=== PATIENT | female | born 1990 | race Caucasian/White ===

== ENCOUNTER 2017-12-05 08:21 | Emergency (ER) | payer BC ==
[2017-12-05] MEDS ORDERED: Albuterol/Ipratropium 3.0-0.5 MG/3 ML Neb Soln NEB ONE (08:35)
[2017-12-05] MEDS ORDERED: predniSONE 20 MG Tab PO ONE (08:37)
--- NOTE | 2017-12-05 08:39 | EDM.PDOC ---
ED HPI GENERAL MEDICAL PROBLEM - General Chief Complaint: Respiratory Problem Stated Complaint: COUGHING Time Seen by Provider: 12/05/17 08:32 - History of Present Illness INITIAL COMMENTS - FREE TEXT/NARRATIVE: HISTORY AND PHYSICAL: History of present illness: Patient's 27-year-old female is approximately 28 weeks with history of asthma presents with a concern of shortness breath and wheezing Review of systems: As per history of present illness and below otherwise all systems reviewed and negative. Past medical history: As per history of present illness and as reviewed below otherwise noncontributory. Surgical history: As per history of present illness and as reviewed below otherwise noncontributory. Social history: No reported history of drug or alcohol abuse. Family history: As per history of present illness and as reviewed below otherwise noncontributory. Physical exam: HEENT: Atraumatic, normocephalic, pupils reactive, negative for conjunctival pallor or scleral icterus, mucous membranes moist, throat clear, neck supple, nontender, trachea midline. Lungs: Scattered installing extra wheezing no rhonchi no crackles, breath sounds equal bilaterally, chest nontender. Heart: S1S2, regular, negative for clicks, rubs, or JVD. Abdomen: Soft, nondistended, nontender. Negative for masses or hepatosplenomegaly. Negative for costovertebral tenderness. Pelvis: Stable nontender. Genitourinary: Deferred. Rectal: Deferred. Extremities: Atraumatic, negative for cords or calf pain. Neurovascular unremarkable. Neuro: Awake, alert, oriented. Cranial nerves II through XII unremarkable. Cerebellum unremarkable. Motor and sensory unremarkable throughout. Exam nonfocal. Diagnostics: CBC CMP BNP UA Therapeutics: Albuterol ipratropium nebulizer prednisone 40 mg by mouth Impression: #128 week intrauterine #2 asthmatic exacerbation Definitive disposition and diagnosis as appropriate pending reevaluation and review of above. 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 ED EXAM, GENERAL - Physical Exam Exam: See Below (See dictation) Course - Vital Signs Last Recorded V/S: Last Vital Signs Temp 35.7 C 12/05/17 08:34 Pulse 87 12/05/17 09:20 Resp 20 12/05/17 09:20 BP 121/70 12/05/17 09:20 Pulse Ox 99 12/05/17 09:20 - Orders/Labs/Meds Orders: Active Orders 24 hr Category Date Time Status RT Aerosol Therapy [RC] ASDIRECTED Care 12/05/17 08:36 Active URINALYSIS W/MICROSCOPIC [UA W/MICROSCOPIC] [URIN] Stat Lab 12/05/17 09:30 Ordered Labs: Laboratory Tests 12/05/17 12/05/17 12/05/17 Range/Units 08:50 08:50 08:50 WBC 13.68 H (4.0-11.0) K/uL RBC 3.88 L (4.30-5.90) M/uL Hgb 11.1 L (12.0-16.0) g/dL Hct 32.4 L (36.0-46.0) % MCV 83.5 (80.0-98.0) fL MCH 28.6 (27.0-32.0) pg MCHC 34.3 (31.0-37.0) g/dL RDW Std Deviation 43.8 (28.0-62.0) fl RDW Coeff of Taylor 15 (11.0-15.0) % Plt Count 244 (150-400) K/uL MPV 9.90 (7.40-12.00) fL Neut % (Auto) 81.6 H (48.0-80.0) % Lymph % (Auto) 11.9 L (16.0-40.0) % [place] % (Auto) 3.9 (0.0-15.0) % Eos % (Auto) 2.5 (0.0-7.0) % Baso % (Auto) 0.1 (0.0-1.5) % Neut # (Auto) 11.2 H (1.4-5.7) K/uL Lymph # (Auto) 1.6 (0.6-2.4) K/uL [place] # (Auto) 0.5 (0.0-0.8) K/uL Eos # (Auto) 0.3 (0.0-0.7) K/uL Baso # (Auto) 0.0 (0.0-0.1) K/uL Nucleated RBC % 0.0 /100WBC Nucleated RBCs # 0 K/uL Sodium 137 (136-145) mmol/L Potassium 3.8 (3.5-5.1) mmol/L Chloride 105 (98-107) mmol/L Carbon Dioxide 24.9 (21.0-32.0) mmol/L BUN 7 (7.0-18.0) mg/dL Creatinine 0.7 (0.6-1.0) mg/dL Est Cr Clr Drug Dosing 121.78 mL/min Estimated GFR (MDRD) > 60.0 ml/min Glucose 123 H (74-106) mg/dL Calcium 8.8 (8.5-10.1) mg/dL Total Bilirubin 0.4 (0.2-1.0) mg/dL AST 7 L (15-37) IU/L ALT 12 L (14-63) IU/L Alkaline Phosphatase 79 (46-116) U/L B-Natriuretic Peptide < 15 (<100) PG/ML Total Protein 7.2 (6.4-8.2) g/dL Albumin 2.7 L (3.4-5.0) g/dL Globulin 4.5 H (2.0-3.5) g/dL Albumin/Globulin Ratio 0.6 L (1.3-2.8) Urine Color Urine Appearance Urine pH (5.0-8.0) Ur Specific [place] (1.001-1.035) Urine Protein (NEGATIVE) mg/dL Urine Glucose (UA) (NEGATIVE) mg/dL Urine Ketones (NEGATIVE) mg/dL Urine Occult Blood (NEGATIVE) Urine Nitrite (NEGATIVE) Urine Bilirubin (NEGATIVE) Urine Urobilinogen (<2.0) EU/dL Ur Leukocyte Esterase (NEGATIVE) Urine RBC (0-2/HPF) Urine WBC (0-5/HPF) Ur Epithelial Cells (NONE-FEW) Urine Bacteria (NEGATIVE) 12/05/17 Range/Units 09:30 WBC (4.0-11.0) K/uL RBC (4.30-5.90) M/uL Hgb (12.0-16.0) g/dL Hct (36.0-46.0) % MCV (80.0-98.0) fL MCH (27.0-32.0) pg MCHC (31.0-37.0) g/dL RDW Std Deviation (28.0-62.0) fl RDW Coeff of Taylor (11.0-15.0) % Plt Count (150-400) K/uL MPV (7.40-12.00) fL Neut % (Auto) (48.0-80.0) % Lymph % (Auto) (16.0-40.0) % [place] % (Auto) (0.0-15.0) % Eos % (Auto) (0.0-7.0) % Baso % (Auto) (0.0-1.5) % Neut # (Auto) (1.4-5.7) K/uL Lymph # (Auto) (0.6-2.4) K/uL R[place] # (Auto) (0.0-0.8) K/uL Eos # (Auto) (0.0-0.7) K/uL Baso # (Auto) (0.0-0.1) K/uL Nucleated RBC % /100WBC Nucleated RBCs # K/uL Sodium (136-145) mmol/L Potassium (3.5-5.1) mmol/L Chloride (98-107) mmol/L Carbon Dioxide (21.0-32.0) mmol/L BUN (7.0-18.0) mg/dL Creatinine (0.6-1.0) mg/dL Est Cr Clr Drug Dosing mL/min Estimated GFR (MDRD) ml/min Glucose (74-106) mg/dL Calcium (8.5-10.1) mg/dL Total Bilirubin (0.2-1.0) mg/dL AST (15-37) IU/L ALT (14-63) IU/L Alkaline Phosphatase (46-116) U/L B-Natriuretic Peptide (<100) PG/ML Total Protein (6.4-8.2) g/dL Albumin (3.4-5.0) g/dL Globulin (2.0-3.5) g/dL Albumin/Globulin Ratio (1.3-2.8) Urine Color YELLOW Urine Appearance CLEAR Urine pH 6.0 (5.0-8.0) Ur Specific [place] 1.015 (1.001-1.035) Urine Protein NEGATIVE (NEGATIVE) mg/dL Urine Glucose (UA) NEGATIVE (NEGATIVE) mg/dL Urine Ketones NEGATIVE (NEGATIVE) mg/dL Urine Occult Blood NEGATIVE (NEGATIVE) Urine Nitrite NEGATIVE (NEGATIVE) Urine Bilirubin NEGATIVE (NEGATIVE) Urine Urobilinogen 0.2 (<2.0) EU/dL Ur Leukocyte Esterase NEGATIVE (NEGATIVE) Urine RBC 0-1 (0-2/HPF) Urine WBC 0-1 (0-5/HPF) Ur Epithelial Cells FEW (NONE-FEW) Urine Bacteria FEW (NEGATIVE) Meds: Medications Discontinued Medications Generic Name Dose Route Start Last Admin Trade Name Freq PRN Reason Stop Dose Admin Albuterol/Ipratropium 3 ml 12/05/17 08:35 12/05/17 08:40 Duoneb 3.0-0.5 Mg/3 Ml NEB 12/05/17 08:36 3 ml ONETIME ONE Administration Prednisone 40 mg 12/05/17 08:37 12/05/17 08:50 Prednisone PO 12/05/17 08:38 40 mg STAT ONE Administration Departure - Departure Time of Disposition: 10:50 Disposition: Home, Self-Care 01 Condition: Good Clinical Impression: Asthma exacerbation - Discharge Information *PRESCRIPTION DRUG MONITORING PROGRAM REVIEWED*: Not Applicable *COPY OF PRESCRIPTION DRUG MONITORING REPORT IN PATIENT FARA: Not Applicable Instructions: Asthma, Adult, [id number], Asthma Attack Referrals: PCP,None [Primary Care Provider] - Forms: ED Department Discharge Additional Instructions: The following information is given to patients seen in the emergency department who are being discharged to home. This information is to outline your options for follow-up care. We provide all patients seen in our emergency department with a follow-up referral. The need for follow-up, as well as the timing and circumstances, are variable depending upon the specifics of your emergency department visit. If you don't have a primary care physician on staff, we will provide you with a referral. We always advise you to contact your personal physician following an emergency department visit to inform them of the circumstance of the visit and for follow-up with them and/or the need for any referrals to a consulting specialist. The emergency department will also refer you to a specialist when appropriate. This referral assures that you have the opportunity for followup care with a specialist. All of these measure are taken in an effort to provide you with optimal care, which includes your followup. Under all circumstances we always encourage you to contact your private physician who remains a resource for coordinating your care. When calling for followup care, please make the office aware that this follow-up is from your recent emergency room visit. If for any reason you are refused follow-up, please contact the [facility] emergency department at and asked to speak to the emergency department charge nurse. Albuterol prednisone as prescribed follow-up primary medical doctor as needed as discussed the return as needed as discussed - My Orders Last 24 Hours: My Active Orders 12/05/17 08:36 RT Aerosol Therapy [RC] ASDIRECTED 12/05/17 09:30 URINALYSIS W/MICROSCOPIC [UA W/MICROSCOPIC] [URIN] Stat - Assessment/Plan Last 24 Hours: My Active Orders 12/05/17 08:36 RT Aerosol Therapy [RC] ASDIRECTED 12/05/17 09:30 URINALYSIS W/MICROSCOPIC [UA W/MICROSCOPIC] [URIN] Stat
[2017-12-05 09:23] LABS: CHLORIDE,CL 105 mmol/L (98-107); SODIUM,NA 137 mmol/L (136-145)
[2017-12-05 09:36] VITALS: BP 121/70
== END 2017-12-05 10:25 | disposition home or self-care (01) ==
LOC: MW.ED 08:21
DX: O99.513 Diseases of the respiratory system complicating pregnancy, third trimester (principal); J45.901 Unspecified asthma with (acute) exacerbation; Z3A.28 28 weeks gestation of pregnancy
CPT/HCPCS: 36415; 80053; 81001; 83880; 85025; 94640; 99284; A9270; J7620-GY

== ENCOUNTER 2018-04-16 17:10 | Emergency (ER) | payer BC ==
[2018-04-16] MEDS ORDERED: Acetaminophen/HYDROcodone 325-5 MG Tab PO ONE (19:08)
[2018-04-16] MEDS ORDERED: Bacitracin Oint 1 GM U/D Packet TOP ONE (19:39)
--- NOTE | 2018-04-16 19:41 | EDM.PDOC ---
ED HPI GENERAL MEDICAL PROBLEM - General Chief Complaint: Skin Complaint Stated Complaint: LUMP UNDER ARMPIT Time Seen by Provider: 04/16/18 17:51 Source of Information: Reports: Patient History Limitations: Reports: No Limitations - History of Present Illness INITIAL COMMENTS - FREE TEXT/NARRATIVE: HISTORY AND PHYSICAL: History of present illness: Patient is a 27-year-old female who presents to the emergency room with complaints of an abscess to her right axilla. She states that she does have a history of a chest and has previously had an abscess that spontaneously ruptured to her left axilla approximately a year ago. Since that time she states she has had multiple small cysts that have resolved on their own. She was seen by her primary care provider in 3-4 days ago for this cyst to the right axilla and was started on doxycycline. 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 She denies any fever, chills, chest pain, shortness of breath or cough. Review of systems: As per history of present illness and below otherwise all systems reviewed and negative. Past medical history: As per history of present illness and as reviewed below otherwise noncontributory. Surgical history: As per history of present illness and as reviewed below otherwise noncontributory. Social history: See social history for further information Family history: As per history of present illness and as reviewed below otherwise noncontributory. Physical exam: General: Well-developed and well nourished 27-year-old female. Nontoxic appearing and in no acute distress. Alert and oriented. HEENT: Atraumatic, normocephalic, pupils equal and reactive bilaterally, negative for conjunctival pallor or scleral icterus, mucous membranes moist, throat clear, neck supple, nontender, trachea midline. No drooling or trismus noted. No meningeal signs Lungs: Clear to auscultation, breath sounds equal bilaterally, chest nontender. Heart: S1S2, regular rate and rhythm without overt murmur Abdomen: Soft, nondistended, nontender. Negative for masses or hepatosplenomegaly. Negative for costovertebral tenderness. Pelvis: Stable nontender. Genitourinary: Deferred. Rectal: Deferred. Skin: Large golf ball size area that is firm to touch, not indurated with erythema of the right axilla. There is a small circular area that does appear fluctuant in the center him approximately the size of a kurt. No pustules noted. Intact, warm, dry. No lesions or rashes noted. Extremities: Atraumatic, negative for cords or calf pain. Neurovascular unremarkable. Neuro: Awake, alert, oriented. Cranial nerves II through XII unremarkable. Cerebellum unremarkable. Motor and sensory unremarkable throughout. Exam nonfocal. Notes: Area was cleansed with chlorhexidine and iodine swab used to clean the I&D site. 1% lidocaine was used to anesthetize the area. I was unable to express any purulent drainage from the site. Culture was obtained and sent to lab. Nonstick dressing applied. Will place the patient on Bactrim DS and give pain medication as needed. She does have an appointment on Wednesday at [facility]. Encouraged her to keep this appointment as she believes that is with a general surgeon who will provide definitive care. We discussed signs and symptoms that would prompt her to return to the emergency room. She voices understanding and is agreeable to plan of care. Denies any further questions or concerns at this time. Diagnostics: Wound culture Therapeutics: 1% lidocaine, nonstick dressing Prescription: Bactrim DS, [place] Impression: Cellulitis, right axilla Plan: 1. Keep the area clean and dry. Wash gently twice daily with soap and water. Continue to monitor for signs of improvement. 2. Take your medication as prescribed. The Acton for moderate to severe pain. This medication may cause drowsiness so do not take it will driving her needing to be functioning outside of the house. 3. Please follow-up with your doctor as directed on Wednesday. Return to the ED as needed and as discussed. Definitive disposition and diagnosis as appropriate pending reevaluation and review of above. Right Axillary Pain Score (Numeric/FACES): 8 - Related Data Allergies Allergy/AdvReac Type Severity Reaction Status Date / Time No Known Allergies Allergy Verified 04/16/18 18:13 Home Meds: Home Meds Albuterol [Ventolin HFA] 1 puff INH Q6HR PRN 12/05/17 [History] Doxycycline [Vibramycin] 100 mg PO BID 04/16/18 [History] Fluticasone/Vilanterol [Breo Ellipta 200-25 MCG Inhalation Kit] 1 puff INH DAILY 04/16/18 [History] Past Medical History Respiratory History: Reports: Asthma Other Respiratory History: has been using inhaler twice a day during Gastrointestinal History: Reports: None Genitourinary History: Reports: None 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 (See Below) 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 History: ovarian cysts Musculoskeletal History: Reports: None Psychiatric History: Reports: Depression Endocrine/Metabolic History: Reports: Obesity/BMI 30+ Dermatologic 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 (See Below) Other Dermatologic History: Hidradenitis Suppurativa - Infectious Disease History Infectious Disease History: Reports: None - Past Surgical History Female Surgical History: Reports: Section, Oophorectomy Musculoskeletal Surgical History: Reports: Arthroscopic Procedure Social & Family History - Family History Family Medical History: Noncontributory - Tobacco Use Smoking Status *Q: Never Smoker - Caffeine Use Caffeine Use: Reports: Soda - Recreational Drug Use Recreational Drug Use: No ED ROS GENERAL - Review of Systems Review Of Systems: ROS reveals no pertinent complaints other than HPI. ED EXAM, SKIN/RASH Exam: See Below (See dictation) Course - Vital Signs Last Recorded V/S: Last Vital Signs Temp 98.9 F 04/16/18 18:10 Pulse 93 04/16/18 18:10 Resp 18 04/16/18 18:10 BP 161/88 H 04/16/18 18:10 Pulse Ox 99 04/16/18 18:10 - Orders/Labs/Meds Orders: Active Orders 24 hr Category Date Time Status CULTURE WOUND [RM] Stat Lab 04/16/18 18:19 Ordered Meds: Medications Discontinued Medications Generic Name Dose Route Start Last Admin Trade Name Denita PRN Reason Stop Dose Admin Hydrocodone Bitart/Acetaminophen 1 tab 04/16/18 19:08 04/16/18 19:24 Acton 325-5 Mg PO 04/16/18 19:09 1 tab ONETIME ONE Administration Bacitracin 1 dose 04/16/18 19:39 Bacitracin Oint 1 Gm TOP 04/16/18 19:40 ONETIME ONE Lidocaine HCl 5 ml 04/16/18 18:19 04/16/18 19:24 Xylocaine-Mpf 1% INJECT 04/16/18 18:20 5 ml ONETIME ONE Administration Departure - Departure Time of Disposition: 19:40 Disposition: Home, Self-Care 01 Clinical Impression: Cellulitis Qualifiers: Site of cellulitis of extremity: axilla Laterality: right - Discharge Information Instructions: Cellulitis, Adult Referrals: PCP,Unknown [Primary Care Provider] - Forms: ED Department Discharge Additional Instructions: The following information is given to patients seen in the emergency department who are being discharged to home. This information is to outline your options for follow-up care. We provide all patients seen in our emergency department with a follow-up referral. The need for follow-up, as well as the timing and circumstances, are variable depending upon the specifics of your emergency department visit. If you don't have a primary care physician on staff, we will provide you with a referral. We always advise you to contact your personal physician following an emergency department visit to inform them of the circumstance of the visit and for follow-up with them and/or the need for any referrals to a consulting specialist. The emergency department will also refer you to a specialist when appropriate. This referral assures that you have the opportunity for follow-up care with a specialist. All of these measure are taken in an effort to provide you with optimal care, which includes your follow-up. Under all circumstances we always encourage you to contact your private physician who remains a resource for coordinating your care. When calling for follow-up care, please make the office aware that this follow-up is from your recent emergency room visit. If for any reason you are refused follow-up, please contact the [facility] Emergency Department at and asked to speak to the emergency department charge nurse. [facility] [address] [place] [id number] [address] [address] 1. Keep the area clean and dry. Wash gently twice daily with soap and water. Continue to monitor for signs of improvement. 2. Take your medication as prescribed. The Acton for moderate to severe pain. This medication may cause drowsiness so do not take it will driving her needing to be functioning outside of the house. 3. Please follow-up with your doctor as directed on Wednesday. Return to the ED as needed and as discussed. - My Orders Last 24 Hours: My Active Orders 04/16/18 18:19 CULTURE WOUND [RM] Stat - Assessment/Plan Last 24 Hours: My Active Orders 04/16/18 18:19 CULTURE WOUND [RM] Stat
[2018-04-16 23:36] VITALS: BP 135/80
== END 2018-04-16 20:25 | disposition home or self-care (01) ==
LOC: MW.ED 17:10
DX: L03.111 Cellulitis of right axilla (principal); Z79.899 Other long term (current) drug therapy
CPT/HCPCS: 87070; 99283; A9270; 87077; 87186

== ENCOUNTER 2018-08-23 20:08 | Emergency (ER) | payer BC ==
--- NOTE | 2018-08-23 21:02 | EDM.PDOC ---
ED HPI GENERAL MEDICAL PROBLEM - General Chief Complaint: Skin Complaint Stated Complaint: hole draining in armpit Time Seen by Provider: 08/23/18 20:53 - History of Present Illness INITIAL COMMENTS - FREE TEXT/NARRATIVE: HISTORY AND PHYSICAL: History of present illness: Patient's a 28-year-old female who presents with a concern of an area of irritation in her right axilla that has drained spontaneously she has a small residual hole that was concerning to her. There's been no fever chills nausea vomiting or other complaints Review of systems: As per history of present illness and below otherwise all systems reviewed and negative. Past medical history: As per history of present illness and as reviewed below otherwise noncontributory. Surgical history: As per history of present illness and as reviewed below otherwise noncontributory. Social history: No reported history of drug or alcohol abuse. Family history: As per history of present illness and as reviewed below otherwise noncontributory. Physical exam: HEENT: Atraumatic, normocephalic, pupils reactive, negative for conjunctival pallor or scleral icterus, mucous membranes moist, throat clear, neck supple, nontender, trachea midline. Lungs: Clear to auscultation, breath sounds equal bilaterally, chest nontender. Heart: S1S2, regular, negative for clicks, rubs, or JVD. Abdomen: Soft, nondistended, nontender. Negative for masses or hepatosplenomegaly. Negative for costovertebral tenderness. Pelvis: Stable nontender. Genitourinary: Deferred. Rectal: Deferred. Extremities: Right axilla has a small approximately 2 mm superficial area that was obviously the site of prior drainage that is well-appearing with no significant erythema induration or fluctuance. Neuro: Awake, alert, oriented. Cranial nerves II through XII unremarkable. Cerebellum unremarkable. Motor and sensory unremarkable throughout. Exam nonfocal. Diagnostics: None Therapeutics: None Impression: #1 cutaneous lesion right axilla probable superficial abscess with spontaneous drainage improving Definitive disposition and diagnosis as appropriate pending reevaluation and review of above. right armpit Pain Score (Numeric/FACES): 5 - Related Data Allergies Allergy/AdvReac Type Severity Reaction Status Date / Time No Known Allergies Allergy Verified 08/23/18 20:43 Home Meds: Home Meds Albuterol [Ventolin HFA] 1 puff INH Q6HR PRN 12/05/17 [History] Doxycycline [Vibramycin] 100 mg PO BID 04/16/18 [History] Fluticasone/Vilanterol [Breo Ellipta 200-25 MCG Inhalation Kit] 1 puff INH DAILY 04/16/18 [History] Past Medical History HEENT History: Reports: None Cardiovascular History: Reports: None Respiratory History: Reports: Asthma Other Respiratory History: has been using inhaler twice a day during Gastrointestinal History: Reports: None Genitourinary History: Reports: None [employer]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 (See Below) 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 Musculoskeletal History: Reports: None Neurological History: Reports: None Psychiatric History: Reports: Depression Endocrine/Metabolic History: Reports: Obesity/BMI 30+ Hematologic History: Reports: None Immunologic History: Reports: None Oncologic (Cancer) History: Reports: None Dermatologic 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 (See Below) Other Dermatologic History: Hidradenitis Suppurativa - Infectious Disease History Infectious Disease History: Reports: None - Past Surgical History Head Surgeries/Procedures: Reports: None GI Surgical History: Reports: Appendectomy Female Surgical History: Reports: Section, Oophorectomy Musculoskeletal Surgical History: Reports: Arthroscopic Procedure Social & Family History - Family History Family Medical History: Noncontributory - Tobacco Use Smoking Status *Q: Never Smoker - Caffeine Use Caffeine Use: Reports: Energy Drinks - Recreational Drug Use Recreational Drug Use: No ED ROS GENERAL - Review of Systems Review Of Systems: ROS reveals no pertinent complaints other than HPI. ED EXAM, SKIN/RASH Exam: See Below (See dictation) Course - Vital Signs Last Recorded V/S: Last Vital Signs Temp 36.3 C 08/23/18 20:43 Pulse 114 H 08/23/18 20:43 Resp 18 08/23/18 20:43 BP 149/104 H 08/23/18 20:43 Pulse Ox 98 08/23/18 20:43 Departure - Departure Time of Disposition: 21:00 Disposition: Home, Self-Care 01 Condition: Good Clinical Impression: Encounter for medical screening examination, Wound of axillary region - Discharge Information Referrals: Esperanza Huff NP [Primary Care Provider] - Additional Instructions: The following information is given to patients seen in the emergency department who are being discharged to home. This information is to outline your options for follow-up care. We provide all patients seen in our emergency department with a follow-up referral. The need for follow-up, as well as the timing and circumstances, are variable depending upon the specifics of your emergency department visit. If you don't have a primary care physician on staff, we will provide you with a referral. We always advise you to contact your personal physician following an emergency department visit to inform them of the circumstance of the visit and for follow-up with them and/or the need for any referrals to a consulting specialist. The emergency department will also refer you to a specialist when appropriate. This referral assures that you have the opportunity for followup care with a specialist. All of these measure are taken in an effort to provide you with optimal care, which includes your followup. Under all circumstances we always encourage you to contact your private physician who remains a resource for coordinating your care. When calling for followup care, please make the office aware that this follow-up is from your recent emergency room visit. If for any reason you are refused follow-up, please contact the [facility] emergency department at and asked to speak to the emergency department charge nurse. Wound care as discussed Neosporin as directed return as needed as discussed follow-up primary medical doctor as needed as discussed
[2018-08-23 21:26] VITALS: BP 141/77
== END 2018-08-23 21:26 | disposition home or self-care (01) ==
LOC: MW.ED 20:08
DX: S41.101A Unspecified open wound of right upper arm, initial encounter (principal); J45.909 Unspecified asthma, uncomplicated; Z79.899 Other long term (current) drug therapy; F32.9 Major depressive disorder, single episode, unspecified; X58.XXXA Exposure to other specified factors, initial encounter
CPT/HCPCS: 99282